=== PATIENT | female | born 1970 | race Two or more races ===

== ENCOUNTER 2022-11-11 16:08 | Emergency (ER) | payer SELFPAY ==
[2022-11-11] MEDS ORDERED: HYDROcodone-ACET 10/325MG TAB PO ONE (16:30)
[2022-11-11] MEDS ORDERED: TRAM50TA2 PO (19:21)
[2022-11-11 20:48] VITALS: BP 147/98
== END 2022-11-11 20:48 | disposition home or self-care (01) ==
LOC: EDBD 16:08 → ER 16:08
DX: S16.1XXA Strain of muscle, fascia and tendon at neck level, initial encounter (principal); E78.5 Hyperlipidemia, unspecified; I10 Essential (primary) hypertension; Z88.0 Allergy status to penicillin; Z88.2 Allergy status to sulfonamides; Z98.890 Other specified postprocedural states; V49.88XA Car occupant (driver) (passenger) injured in other specified transport accidents, initial encounter; Y93.89 Activity, other specified; Y92.89 Other specified places as the place of occurrence of the external cause; Y99.8 Other external cause status
CPT/HCPCS: 70450; 72125